=== PATIENT | male | born 1965 | race Caucasian/White ===

== ENCOUNTER 2017-04-30 16:45 | Emergency (ER) | payer OTHER ==
[~2017-04-30] VITALS: Ht 175.3 cm; Wt 89.5 kg
[~2017-04-30 16:45] MED LIST: ADVAIR 100-501 EACH IH; ADVAIR 500-501 EACH IH; ADVAIR 500/501 DISK IH; ALBUTEROL17 G1 IH; ALBUTEROL17 GM IH; AMBIEN10 MG PO; ATORVASTATIN CA10 MG PO; AVELOX400 MG PO; Advair HFA 230/21 IH; Advair HFA 45/21 IH; Ambien PO; CIPRO500 MG PO; COMBIVENT RESPIM4 GM IH; CYCLOBENZAPR TAB 10M; DELTASONE20 MG PO; DuoNeb IH; FLAGYL500 MG PO; FLEXERIL10 MG PO; FLUOXETINE HCL40 MG PO; Flexeril PO; GLUCOPHAGE500 MG PO; Glucophage PO; KLONOPIN1 M1 PO; LIDEX 0.05% CRE60 GM TP; LISINOPRIL5 MG PO; LO-DOSE ASPIRIN81 M1 PO; Levaquin PO; METFORMIN HCL1000 MG PO; METFORMIN HCL500 MG PO; MONTELUKAST SOD10 MG PO; NAPROSYN500 MG PO; NEXIUM10 MG PO; NEXIUM40 MG PO; PEN-VEE K,VEET500 MG PO; PERCOCET 5/31 TABLET PO; PRAVACHOL40 MG PO; PRAVASTATIN SOD80 MG PO; PROAIR HFA8.5 GM; PROVENTIL,2.5 MG/3 M IH; PROZAC20 MG PO; PROzac PO; Prozac PO; SERTRALINE HCL100 MG PO; SINGULAIR10 MG PO; SINGULAIR4 MG PO; SPIRIVA1 INHALATI IH; Singulair PO; THEO-24 100 MG100 MG PO; THEO-DUR,THEOC100 MG PO; THEOPHYLLINE A450 MG PO; THEOPHYLLINE PO; Theo-Dur,Theocron PO; UNIPHYL400 MG PO; VENTOLIN HFA18 GM IH; ZESTRIL,PRINIVI10 MG PO; predniSONE PO
[2017-04-30] MEDS ORDERED: ULTRAM50 MG PO (17:42)
[2017-04-30] MEDS ORDERED: PEN-VEE K,VEET500 MG PO (17:42)
[2017-04-30 17:51] VITALS: BP 173/101
== END 2017-04-30 17:55 | disposition home or self-care (01) ==
LOC: EME 16:45
DX: K02.9 Dental caries, unspecified (principal); R51 Headache; F17.200 Nicotine dependence, unspecified, uncomplicated
CPT/HCPCS: 99281; 99283

== ENCOUNTER → 2017-10-20 | Outpatient (CLI) | payer OTHER ==
[~2017-10-20] MED LIST changes: +ULTRAM50 MG PO
== END | disposition home or self-care (01) ==
LOC: RES 08:00
DX: Z02.71 Encounter for disability determination (principal)
CPT/HCPCS: 94060; 94729; 94760